=== PATIENT | female | born 1970 | race Caucasian/White ===

== ENCOUNTER 2020-01-21 02:18 | Emergency (ER) | payer MEDICARE, OTHER ==
[~2020-01-21] VITALS: Ht 162.6 cm; Wt 68.0 kg
[2020-01-21] MEDS ORDERED: MORPHINE SULFATE INJ 2 MG/ML DISP.SYRIN IM ONE (02:30)
--- NOTE | 2020-01-21 02:32 | NUR ---
pt bibra c/o left shoulder pain denies trauma. pt aox4 rr even and unlabored. no sob noted. no nvd at this time. pt connected to monitor. no acute distress noted. pt noted with service dog on lap. pt seen by dr. alvarez
--- NOTE | 2020-01-21 02:34 | NUR ---
radiology at bedside for xr
[2020-01-21] MEDS ORDERED: MORPHINE SULFATE INJ 4 MG/ML DISP.SYRIN ONE (02:36)
[2020-01-21] MEDS ORDERED: MORPHINE SULFATE INJ 2 MG/ML DISP.SYRIN ONE (02:36)
--- NOTE | 2020-01-21 02:51 | NUR ---
provided pt with elbow sling per dr. alvarez.
--- NOTE | 2020-01-21 03:20 | NUR ---
pt asleep and appears comfortable at this time. pending xr results
--- NOTE | 2020-01-21 03:53 | NUR ---
Dr. alvarez spoke to pt regarding plan of care.
--- NOTE | 2020-01-21 03:55 | NUR ---
Patient discharged to home in stable condition. Written and verbal after care instructions given. Patient verbalizes understanding of instruction. ambulatory with a steady gait.
[2020-01-21 04:34] VITALS: BP 131/92
== END 2020-01-21 03:55 | disposition home or self-care (01) ==
LOC: ER 02:21
DX: M25.512 Pain in left shoulder (principal); Z98.890 Other specified postprocedural states; Z88.8 Allergy status to other drugs, medicaments and biological substances
CPT/HCPCS: 73030; 96372; 99283; J2270 ×2